=== PATIENT | female | born 2000 | race Caucasian/White ===

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

== ENCOUNTER 2021-01-12 11:54 | Emergency (ER) | payer OTHER ==
[~2021-01-12] VITALS: Ht 167.6 cm; Wt 84.8 kg
[2021-01-12 11:54] VITALS: BP 122/66
[~2021-01-12 11:54] MED LIST changes: +APAP500T10 PO; -DOXY100C PO; +DOXY100C3 PO
== END 2021-01-12 13:46 | disposition left against medical advice (07) ==
LOC: M ED 11:54
DX: Z53.29 Procedure and treatment not carried out because of patient's decision for other reasons (principal)

== ENCOUNTER 2021-01-12 15:53 | Emergency (ER) | payer OTHER ==
[~2021-01-12] VITALS: Ht 167.6 cm; Wt 85.4 kg
[2021-01-12 15:53] VITALS: BP 109/66
== END 2021-01-12 21:15 | disposition left against medical advice (07) ==
LOC: M ED 15:53
DX: Z53.21 Procedure and treatment not carried out due to patient leaving prior to being seen by health care provider (principal)

== ENCOUNTER 2022-05-04 08:12 | Emergency (ER) | payer OTHER ==
[~2022-05-04] VITALS: Ht 167.6 cm; Wt 80.0 kg
[2022-05-04 09:24] LABS: RSV AMPLIFICATION NEGATIVE (NEGATIVE)
[2022-05-04 12:18] VITALS: BP 118/66
[2022-05-04] MEDS ORDERED: ONDA4TAB6 PO (12:22)
[2022-05-04] MEDS ORDERED: OSEL75CA PO (12:22)
== END 2022-05-04 12:43 | disposition home or self-care (01) ==
LOC: M ED 08:12
DX: J09.X2 Influenza due to identified novel influenza A virus with other respiratory manifestations (principal)